=== PATIENT | female | born 1985 | race Caucasian/White ===

== ENCOUNTER 2017-05-17 11:21 | Emergency (ER) | payer MEDICAID ==
[~2017-05-17] VITALS: Ht 162.6 cm; Wt 88.5 kg
[2017-05-17 11:27] VITALS: Ht 162.6 cm; Wt 88.5 kg
[2017-05-17] MEDS ORDERED: ONDANSETRON (ODT) 4 MG TAB ODT STA (12:44)
[2017-05-17] MEDS ORDERED: ACETAMINOPHEN 500 MG TAB PO STA (12:50)
[2017-05-17] MEDS ORDERED: DIPHTH/TET/ACEL PERTUSS (ADULT) 0.5 ML VIAL IM* ONE (13:00)
[2017-05-17] MEDS ORDERED: LIDOCAINE 1% (MDV) 20 ML INJ SC ONE (13:00)
[2017-05-17] MEDS ORDERED: LIDOCAINE 2% (MDV) 20 ML INJ INJ ONE (13:30)
[2017-05-17] MEDS ORDERED: ACET500C5 PO (13:59)
[2017-05-17] MEDS ORDERED: CEPH-443 PO (14:00)
--- NOTE | 2017-05-17 14:08 | ERD ---
ER Documentation Chief Complaint Date/Time DATE: 05/17/17 TIME: 14:02 Chief Complaint BIB SELF C/O LEFT BIG TOE LACERATION. S/P GLASS PLATE FALLING ON FOOT HPI This a 31-year-old female who presents the emergency department today for a left toe laceration. Patient is here with her son who states that earlier today she dropped a glass bowl that she put drinks and similar to a punch bowl on top of her foot. States she is unsure of her last tetanus shot. States she is 8 months . States she feels nauseated. Denies any fevers or chills or previous trauma ROS All systems reviewed and are negative except as per history of present illness. Medications Home Meds Active Scripts Cephalexin* (Keflex*) 500 Mg Capsule, 500 MG PO QID for 7 Days, CAP Prov:BILL ANDERSON PA-C 05/17/17 Acetaminophen* (Tylophen*) 500 Mg Capsule, 1 CAP PO Q6H Y for PAIN AND OR ELEVATED TEMP, #30 CAP Prov:BILL ANDERSON PA-C 05/17/17 Allergies Allergies: Coded Allergies: No Known Allergy (Unverified , 05/04/13) PMhx/Soc Medical and Surgical Hx: pt denies Medical Hx History of Surgery: Yes (c-sec) Anesthesia Reaction: No Hx Neurological Disorder: No Hx Respiratory Disorders: No Hx Cardiac Disorders: No Hx Psychiatric Problems: No Hx Miscellaneous Medical Probl: No Hx Alcohol Use: No (occasionally) Hx Substance Use: No Hx Tobacco Use: No Smoking Status: Never smoker Physical Exam Vitals Vital Signs Date Time Temp Pulse Resp B/P Pulse Ox O2 Delivery O2 Flow Rate FiO2 05/17/17 11:27 98.7 103 20 155/105 99 Physical Exam Const: No acute distress Head: Atraumatic Eyes: Normal Conjunctiva ENT: Normal External Ears, Nose and Mouth. Neck: Full range of motion..~ No meningismus. Resp: Clear to auscultation bilaterally Cardio: Regular rate and rhythm, no murmurs Abd: Soft, non tender, non distended. Normal bowel sounds Skin: No petechiae or rashes MSK: Left foot with no obvious deformity. Mild effusion. Evidence of 2.5 cm laceration. No evidence of foreign body. Tenderness palpation diffusely over great toe. Pulses 2+. Distal neurovascularly intact. Neur: Awake and alert Psych: Normal Mood and Affect Results 24 hrs Current Medications Medications (Trade) Dose Ordered Sig/Aleksandr Route PRN Reason Start Time Stop Time Status Last Admin Dose Admin Ondansetron HCl (Zofran Odt) 4 mg ONCE STAT ODT 05/17/17 12:44 05/17/17 12:45 DC 05/17/17 12:56 Acetaminophen (Tylenol Tab) 500 mg ONCE STAT PO 05/17/17 12:50 05/17/17 12:54 DC 05/17/17 12:56 Diphtheria/ Tetanus/Acell Pertussis (Adacel) 0.5 ml ONCE ONCE IM* 05/17/17 13:00 05/17/17 13:01 DC 05/17/17 12:57 Lidocaine (Xylocaine 1% (Mdv) 20 ml) 20 ml ONCE ONCE SC 05/17/17 13:00 05/17/17 13:01 Cancel Lidocaine (Xylocaine 2% (Mdv) 20 ml) 20 ml ONCE ONCE INJ 05/17/17 13:30 05/17/17 13:31 DC Procedures/MDM This is a 31-year-old female who presents the emergency department today for a left toe laceration that she sustained earlier today after jumping a glass punch bowl on her foot. Patient is 8 months . I did attempt to obtain images of the patient's left toe to rule out fracture or glass foreign body however patient refused. It was explained to the patient multiple times that she is not in the first trimester and she is 8 months and that she could be shielded however patient continued declined. I explained to the patient I could not tell if she had a fracture or if there was glass foreign body. Patient understood. I explained to the patient that the wound and need to be closed with sutures given the depth and location and to help control bleeding. I explained the risks and benefits and patient agreed to proceed. Patient tolerated the procedure well and there were no complications Patient states that she has not yet had a tetanus shot during her and she was unsure of her last tetanus shot. Patient was given an updated Tdap here that is safe and third trimester. Patient was given Zofran for nausea and Tylenol for pain Laceration Repair by me: Anesthesia: 2% lidocaine locally 4 cc Location: Left great toe Tendon/Joint/Nerves: No injury Foreign body: None detected after copious irrigation and exploration Technique: 5 Simple Interrupted Sutures using 4-0 nylon Complexity: No subcutaneous sutures/mucosal repair/ edge excision Post Closure Length: 2.5 cm Patient's bleeding was easily controlled in the department and there is no indication of anemia. No evidence of compartment syndrome, neurologic injury, vascular injury, open joint, tendon laceration, or foreign body. Patient is appropriate for outpatient follow up. 48 hour wound check. Scar minimization instructions given. Patient was given a prescription for Keflex and Tylenol. She was instructed to take the antibiotics and notified that both medications are safe in . Patient understood. She was instructed to return in 48 hours for a wound check and again in 7-10 days for suture removal. Patient understood patient was placed in an ortho shoe. At this time the patient is stable for discharge and outpatient management. Patient should follow up with their PCP in the next 1-2 days. They may return to the emergency department sooner for any persistent or worsening of symptoms. Patient understood and agreed with the plan. Dr. Vargas has seen and evaluated the patient and he is in agreement with the plan Departure Diagnosis: Primary Impression: Laceration Condition: Fair Patient Instructions: Laceration, Foot Referrals: your PCP Additional Instructions: Llame al doctor MAANA y nam hernando FRANCISCA PARA DENTRO DE 1-2 DIETRICH.Dgale a la secretaria que nosotros le instruimos hacer esta francisca.Avise o llame si rao condicin se empeora antes de la francisca. Regresa aqui si peor o no mejor. Wound check in 48 hours Suture removal in 7-10 days Take antibiotics as prescribed Keep wound clean and dry Wear ortho shoe Take Tylenol for pain BILL ANDERSON PA-C May 17, 2017 14:08
== END 2017-05-17 14:18 | disposition home or self-care (01) ==
LOC: FTE 11:21
DX: S91.122A Laceration with foreign body of left great toe without damage to nail, initial encounter (principal); W25.XXXA Contact with sharp glass, initial encounter; Y92.9 Unspecified place or not applicable; Z23 Encounter for immunization
CPT/HCPCS: 12001; 90471; 90715; Z7502; Z7610

== ENCOUNTER 2017-06-02 11:22 | Outpatient (CLI) | payer MEDICAID ==
[~2017-06-02] VITALS: Ht 162.6 cm; Wt 88.7 kg
[~2017-06-02 11:22] MED LIST: ACET500C5 PO; CEPH-443 PO
[2017-06-02 11:35] VITALS: Ht 162.6 cm; Wt 88.7 kg
[2017-06-02 11:36] VITALS: BP 115/72; PULSE 101; RESP 18
[2017-06-02] MEDS ORDERED: CALC600T11 PO (11:42)
[2017-06-02] MEDS ORDERED: PRENAT PO (11:42)
[2017-06-02] MEDS ORDERED: FERR325C PO (11:42)
--- NOTE | 2017-06-02 12:01 | RADRPT ---
PROCEDURE: OB ultrasound for biophysical profile CLINICAL INDICATION: Decreased movement TECHNIQUE: Multiple sonographic images of the pelvis were obtained. Transabdominal view of the gr avid uterus are available for review. The images were reviewed on a PACS workstation. COMPARISON: OB ultrasound 06/01/2017 FINDINGS: breathing movement = 2/2 tone = 2/2 motion = 2/2 SHIRLEY = 2/2 SHIRLEY = 11.9 cm Single live intrauterine with cardiac activity. heart rate equals 157 beats p er minute. Presentation is cephalic. The placenta is anterior. IMPRESSION: 1. Single viable intrauterine gestation. 2. Biophysical profile = 8/8. 3. SHIRLEY = 11.9 cm. RPTAT: KK .Levi Garcia MD, MD Date Time Electronically viewed and signed by .Levi Garcia MD, MD on 06/02/2017 12:01 .B/
--- NOTE | 2017-06-02 13:07 | RADRPT ---
PROCEDURE: US Abdomen Limited . CLINICAL INDICATION: with abdominal pain TECHNIQUE: Multiple real-time images were acquired of the patient's right upper quadrant abdomen u tilizing a high resolution transducer. COMPARISON: None FINDINGS: The liver measures 15.0 cm and demonstrates a normal echogenicity. The gallbladder is filled with a moderate amount of bile. No shadowing echogenic stones or masses are seen in the gallbladder. The gallbladder wall is not thickened at 1.0 mm. No pericholecystic fluid is noted. The common bile duct measures 5.1 mm in diameter. The pancreas is not well visualized. Antegrade flow is seen in the portal vein. Right kidney measures 10.6 cm. Right kidney demonstrates a normal echogenicity. No hydronephrosis, masses or stones are noted. IMPRESSION: Pancreas not well visualized. If characterization of this structure is needed repeat exam is recomme nded. Otherwise, unremarkable exam. RPTAT: AA .Viet Rose MD, Date Time Electronically viewed and signed by .Viet Rose MD, on 06/02/2017 13:07 .P/
[2017-06-02 13:54] LABS: ADD SCAN DIFF NO
[2017-06-02 13:57] LABS: BASOPHILS % 0.4 % (0.0-2.0); EOSINOPHILS # 0.2 10^3/ul (0.0-0.5); EOSINOPHILS % 2.5 % (0.0-7.0); HEMATOCRIT 35.6 % (37.0-47.0); HEMOGLOBIN 12.3 g/dl (12.0-16.0); LYMPHOCYTES # 1.8 10^3/ul (0.8-2.9); MEAN CORPUSCULAR HEMOGLOBIN 30.7 pg (29.0-33.0); MEAN CORPUSCULAR HGB CONC 34.6 g/dl (32.0-37.0); MEAN CORPUSCULAR VOLUME 88.8 fl (82.0-101.0); MEAN PLATELET VOLUME 10.8 fl (7.4-10.4); MONOCYTE # 0.6 10^3/ul (0.3-0.9); MONOCYTES % 8.3 % (0.0-11.0); NEUTROPHIL # 4.9 10^3/ul (1.6-7.5); NEUTROPHILS % 63.5 % (39.0-77.0); NUCLEATED RED BLOOD CELLS% 0.4 /100WBC (0.0-0.0); PLATELET COUNT 225 10^3/UL (140-415); RED BLOOD COUNT 4.01 10^6/ul (4.20-5.40); RED CELL DISTRIBUTION WIDTH 15.1 % (11.5-14.5); WHITE BLOOD COUNT 7.7 10^3/ul (4.8-10.8)
[2017-06-02 14:06] LABS: ADD UMIC YES; UR ASCORBIC ACID 20 mg/dL (NEGATIVE); UR BACTERIA FEW /HPF (NONE SEEN); UR BILIRUBIN (Dip) NEGATIVE (NEGATIVE); UR BLOOD (Dip) NEGATIVE (NEGATIVE); UR CLARITY SLIGHTLY CLOUDY (CLEAR); UR COLOR YELLOW (YELLOW); UR GLUCOSE (Dip) NEGATIVE (NEGATIVE); UR KETONES (Dip) NEGATIVE (NEGATIVE); UR LEUKOCYTE ESTERASE (Dip) TRACE Leu/ul (NEGATIVE); UR MUCUS FEW /HPF (NONE SEEN); UR NITRITE (Dip) NEGATIVE (NEGATIVE); UR RBC 6 /HPF (0-5); UR SPECIFIC GRAVITY (Dip) 1.024 (1.003-1.030); UR SQUAMOUS EPITHELIAL CELL MODERATE /HPF (FEW); UR TOTAL PROTEIN (Dip) 2+ mg/dl (NEGATIVE); UR UROBILINOGEN (Dip) NEGATIVE (NEGATIVE)
--- NOTE | 2017-06-02 14:42 | TRIAGE ---
OB Triage Datetime Report Generated by CPN: 06/02/2017 14:42 Datetime: 06/02/2017 12:23 Heart Rate Comments: NST COMPLETE. Pt taken off monitors and now awaiting US for R upper quadrant organs. Datetime: 06/02/2017 11:46 Time of Arrival: 06/02/2017 11:16 EGA: 35.5 Arrived By: Ambulatory Arrived From: Office Chief Complaint: Decreased movement Movement: Decreased Contractions: Denies/Absent Rupture of Membranes: Denies Vaginal Bleeding: Normal Show Vaginal Discharge: Denies Recent Sexual Intercouse: Denies Abdominal Trauma: Not Applicable Patient Complaints: None Time Provider Notified: 06/02/2017 12:17 Provider Notified: Eshaghian Initial Plan: BPP/SHIRLEY, NST Datetime: 06/02/2017 11:31 Assessment Type: Triage Maternal Assessment Level of Consciousness: Fully Conscious DTR's/Clonus: DTRs 2+; No Clonus Headache: Denies Blurred Vision: No Respiratory Effort: Unlabored; Regular Rhythm; Equal Expansion Breath Sounds, Left: Clear and Equal Breath Sounds, Right: Clear and Equal Nausea/Vomiting: Denies RUQ Epigastric Pain: Denies Lower Extremities Edema: Bilateral Lower Extremities Degree: 1+ Upper Extremities Edema: None Degree: None Facial Edema: None Fall Risk Assessment History of Falling: (0) No Secondary Diagnosis: (0) No Ambulatory Aid: (0) Bedrest/Nurse Assist IV Therapy: (0) No Gait: (0) Normal/Bedrest/Immobile Mental Status: (0) Oriented to Own Ability Fall Score: 0 Fall Risk Score Definition: No Risk: No action required Pain Assessment Pain Scale: 4 Pain Presence: Intermittent Pain Type: Ache Pain Location: Abdomen Pain Goal: 0 Pain Relief Measures: Comfort Measures Datetime: 06/02/2017 11:24 Stage of : OB Triage
--- NOTE | 2017-06-02 14:59 | CONS ---
Date/Time of Note Date/Time of Note DATE: 06/02/17 TIME: 14:54 Consultation Date/Type/Reason Admit Date/Time June 02, 2007 OB triage consult Reason for Consultation This patient is a 31 years old 2 para 1 who had her first delivery by section. Her estimated date of confinement is July 02, 2017 which makes her 25 weeks and 5 days now. She came to OB triage complaining of low movement as well as slight upper abdominal pain a few hours ago She is currently attending her clinic regularly. she is taking her iron calcium and multivitamins on examination she is a well-developed well-nourished lady near term. Her general vital signs appear to be normal with blood pressure 115/72 ,pulse rate 101,, respiration 18, and temperature 98.3 heart tone was normal, tracing category 1 with good variability ,no decelerations On examination ;abdomen was soft, very rare contractions, no CVA tenderness Laboratory Tests Test 06/02/17 13:30 White Blood Count 7.710^3/ul Red Blood Count 4.0110^6/ul Hemoglobin 12.3g/dl Hematocrit 35.6% Mean Corpuscular Volume 88.8fl Mean Corpuscular Hemoglobin 30.7pg Mean Corpuscular Hemoglobin Concent 34.6g/dl Red Cell Distribution Width 15.1% Platelet Count 52688^3/UL Mean Platelet Volume 10.8fl Neutrophils % 63.5% Lymphocytes % 24.0% Monocytes % 8.3% Eosinophils % 2.5% Basophils % 0.4% Nucleated Red Blood Cells % 0.4/100WBC Neutrophils # 4.910^3/ul Lymphocytes # 1.810^3/ul Monocytes # 0.610^3/ul Eosinophils # 0.210^3/ul Basophils # 0.010^3/ul Nucleated Red Blood Cells # 0.010^3/ul Urine Color YELLOW Urine Clarity SLIGHTLY CLOUDY Urine pH 7.0 Urine Specific [place] 1.024 Urine Ketones NEGATIVEmg/dL Urine Nitrite NEGATIVEmg/dL Urine Bilirubin NEGATIVEmg/dL Urine Urobilinogen NEGATIVEmg/dL Urine Leukocyte Esterase TRACELeu/ul Urine Microscopic RBC 6/HPF Urine Microscopic WBC 4/HPF Urine Squamous Epithelial Cells MODERATE/HPF Urine Bacteria FEW/HPF Urine Mucus FEW/HPF Urine Yeast (Budding) /HPF Urine Hemoglobin NEGATIVEmg/dL Urine Glucose NEGATIVEmg/dL Urine Total Protein 2+mg/dl Constitutional: No chills, No diaphoresis, No disoriented, No febrile, No improved, No no complaints, No other, No poor po, No requiring IVF, No requiring O2 Eyes: No discharge, No no complaints, No other, No pain, No redness, No visual change ENT: No bleeding, No congestion, No discharge, No dysphagia, No no complaints, No other, No pain, No sore throat Respiratory: No cough, No no complaints, No other, No pain, No pleuritic pain, No shortness of breath, No sputum, No wheezing Cardiovascular: No chest pain, No edema, No lightheadedness, No no complaints, No orthopenea, No other, No palpitations, No paroxysmal nocturnal dyspnea Gastrointestinal: other, No blood, No constipation, No decreased appetite, No diarrhea, No flatus, No nausea, No no complaints, No pain, No passing stool, No vomiting Genitourinary: other (Pelvic exam was not performed due to the fact that she did not seem to have any active contractions), No bleeding, No discharge, No dysuria, No flank pain, No hematuria, No no complaints Musculoskeletal: No back pain, No bone/joint pain, No neck pain, No no complaints, No other, No restricted range of motion, No swelling Skin: No bruising, No erythema, No laceration, No no complaints, No other, No pruritis, No rash, No skin lesions Neurologic: No confusion, No dizziness, No focal-weakness, No headache, No no complaints, No other, No seizure, No syncope Endocrine: No dry skin, No no complaints, No other, No polydypsia, No polyuria , No temp intolerance Lymphatic: No adenopathy, No lymphadema, No no complaints, No other, No tender nodes Additional Comments The studies that we have done in the clinic ;,the urine total protein was 1 plus , WBC of 4 and RBCs . She was diagnosed urinary tract infection in the past week and was placed on antibiotic. on ultrasound studies report is single intrauterine with heart rate of 157. in vertex presentation. placenta anterior her SHIRLEY was 11.9 cm, with biophysical profile of 06/03 Renal ultrasound were also normal With these negative finding reassurance was given and patient was discharged home to return to the clinic in case of labor pain. vaginal bleeding or any other major discomfort End of dictation thank Social History Smoking Status: Never smoker Exam/Review of Systems Vital Signs Vitals Vital Signs Date Time Temp Pulse Resp B/P Pulse Ox O2 Delivery O2 Flow Rate FiO2 06/02/17 11:36 98.3 101 18 115/72 Room Air Results Result Diagram: 06/02/17 1330 Results 24 hrs Laboratory Tests Test 06/02/17 13:30 White Blood Count 7.7 Red Blood Count 4.01 L Hemoglobin 12.3 Hematocrit 35.6 L Mean Corpuscular Volume 88.8 Mean Corpuscular Hemoglobin 30.7 Mean Corpuscular Hemoglobin Concent 34.6 Red Cell Distribution Width 15.1 H Platelet Count 225 Mean Platelet Volume 10.8 H Neutrophils % 63.5 Lymphocytes % 24.0 Monocytes % 8.3 Eosinophils % 2.5 Basophils % 0.4 Nucleated Red Blood Cells % 0.4 H Neutrophils # 4.9 Lymphocytes # 1.8 Monocytes # 0.6 Eosinophils # 0.2 Basophils # 0.0 Nucleated Red Blood Cells # 0.0 Urine Color YELLOW Urine Clarity SLIGHTLY CLOUDY A Urine pH 7.0 Urine Specific [place] 1.024 Urine Ketones NEGATIVE Urine Nitrite NEGATIVE Urine Bilirubin NEGATIVE Urine Urobilinogen NEGATIVE Urine Leukocyte Esterase TRACE A Urine Microscopic RBC 6 H Urine Microscopic WBC 4 Urine Squamous Epithelial Cells MODERATE Urine Bacteria FEW A Urine Mucus FEW A Urine Yeast (Budding) Urine Hemoglobin NEGATIVE Urine Glucose NEGATIVE Urine Total Protein 2+ H DAVID LIPSCOMB MD Jun 02, 2017 14:59
== END 2017-06-02 14:45 | disposition home or self-care (01) ==
LOC: OBT 11:22 → L-D 11:24 → OBT 14:45
PROVIDERS: ATTEND Obstetrics & Gynecology
DX: O62.9 Abnormality of forces of labor, unspecified (principal); Z3A.25 25 weeks gestation of pregnancy
CPT/HCPCS: 36415; 76705; 76818; 81001; 85025; Z7500; G0463

== ENCOUNTER 2017-06-16 12:41 | Outpatient (CLI) | payer MEDICAID ==
[~2017-06-16] VITALS: Ht 167.6 cm; Wt 92.8 kg
[~2017-06-16 12:41] MED LIST changes: +CALC600T11 PO; +FERR325C PO; +PRENAT PO
[2017-06-16 13:14] VITALS: Ht 167.6 cm; Wt 92.8 kg
[2017-06-16 13:16] VITALS: BP 118/74; PULSE 88; RESP 20
[2017-06-16 14:28] LABS: ADD SCAN DIFF NO
[2017-06-16 14:32] LABS: BASOPHILS % 0.4 % (0.0-2.0); EOSINOPHILS % 0.5 % (0.0-7.0); HEMATOCRIT 36.6 % (37.0-47.0); HEMOGLOBIN 12.2 g/dl (12.0-16.0); LYMPHOCYTES % 24.1 % (15.0-51.0); MEAN CORPUSCULAR HEMOGLOBIN 29.6 pg (29.0-33.0); MEAN CORPUSCULAR HGB CONC 33.3 g/dl (32.0-37.0); MEAN CORPUSCULAR VOLUME 88.8 fl (82.0-101.0); MEAN PLATELET VOLUME 10.9 fl (7.4-10.4); MONOCYTE # 0.6 10^3/ul (0.3-0.9); MONOCYTES % 7.3 % (0.0-11.0); NEUTROPHIL # 5.4 10^3/ul (1.6-7.5); NEUTROPHILS % 66.5 % (39.0-77.0); PLATELET COUNT 203 10^3/UL (140-415); RED BLOOD COUNT 4.12 10^6/ul (4.20-5.40); RED CELL DISTRIBUTION WIDTH 15.5 % (11.5-14.5); WHITE BLOOD COUNT 8.2 10^3/ul (4.8-10.8)
[2017-06-16 14:42] LABS: ADD UMIC NO; UR ASCORBIC ACID NEGATIVE (NEGATIVE); UR BILIRUBIN (Dip) NEGATIVE (NEGATIVE); UR BLOOD (Dip) NEGATIVE (NEGATIVE); UR CLARITY CLEAR (CLEAR); UR COLOR YELLOW (YELLOW); UR GLUCOSE (Dip) NEGATIVE (NEGATIVE); UR KETONES (Dip) NEGATIVE (NEGATIVE); UR LEUKOCYTE ESTERASE (Dip) NEGATIVE Leu/ul (NEGATIVE); UR NITRITE (Dip) NEGATIVE (NEGATIVE); UR TOTAL PROTEIN (Dip) NEGATIVE (NEGATIVE); UR UROBILINOGEN (Dip) NEGATIVE (NEGATIVE)
[2017-06-16 14:54] LABS: ALBUMIN 3.3 g/dl (3.3-4.9); CALCIUM 9.4 mg/dl (8.4-10.2); CREATININE 0.67 mg/dl (0.44-1.00); POTASSIUM 4.6 mmol/L (3.5-5.1); TOTAL PROTEIN 6.7 g/dl (6.1-8.1)
[2017-06-16 14:58] LABS: INR 0.83; PROTIME 11.4 Sec (12.2-14.2); PT RATIO 0.9
[2017-06-16 14:59] LABS: PARTIAL THROMBOPLASTIN TIME 24.3 Sec (25.0-35.0)
--- NOTE | 2017-06-16 15:34 | RADRPT ---
PROCEDURE: US OB. CLINICAL INDICATION: Hypertension. TECHNIQUE: Multiple sonographic images of the uterus were obtained. The images were revi ewed on a PACS workstation. COMPARISON: No prior studies are available for comparison. FINDINGS: There is a single live intrauterine gestation. heart rate is 131 beats per minute. Measurements were made in order to determine age. The results are as follows: BPD = 8.74 cm. HC = 32.62 cm. AC = 34.0 cm. FL = 7.24 cm. Estimated weight is 3170 +/- 476 grams. LMP growth percentile is 49%. Menstrual age by ultrasound dates is 36 weeks 6 days. The estimated date of delivery is 07/08/2017. Position is cephalic and placenta is anterior grade II. There is no evidence for an abruption or [place] previa. IMPRESSION: 1. Single live intrauterine gestation of 36 weeks 6 days menstrual age by ultrasound dates. 2. The estimated date of delivery is 07/08/2017. RPTAT: QQ .Jose Alberto Ackerman MD, Date Time Electronically viewed and signed by .Jose Alberto Ackerman MD, on 06/16/2017 15:33 .R/
--- NOTE | 2017-06-16 15:36 | RADRPT ---
PROCEDURE: US biophysical profile. CLINICAL INDICATION: Decreased motion. TECHNIQUE: Multiple sonographic images of the uterus were obtained. The images were revi ewed on a PACS workstation. COMPARISON: No prior studies are available for comparison. FINDINGS: There is a single live intrauterine gestation. heart rate is 125 beats per minute. The position is cephalic. The placenta is anterior grade II with no abruption or previa. The SHIRLEY is 16.6 cm. (Normal = 5-20 cm.) Breathing Movement: 2 Gross Body Movement: 2 Tone: 2 Qualitative Amniotic Fluid Volume: 2 TOTAL: 8 IMPRESSION: 1. The biophysical score is 8/8. RPTAT: QQ .Jose Alberto Ackerman MD, MD Date Time Electronically viewed and signed by .Jose Alberto Ackerman MD, on 06/16/2017 15:35 .R/
--- NOTE | 2017-06-16 17:09 | TRIAGE ---
OB Triage Datetime Report Generated by CPN: 06/16/2017 17:09 Datetime: 06/16/2017 16:37 Vaginal Exam Dilatation (cms): 0.0 Effacement (%): 0 Exam By: DR FOROOHAR Datetime: 06/16/2017 16:20 Stage of : OB Triage Datetime: 06/16/2017 15:18 Stage of : OB Triage Labor Evaluation Frequency: 11 Monitor Mode: External Duration (sec)2399: 60 Quality: Moderate Resting Tone [place]: Relaxed Heart Rate FHR Baseline Rate: 125 Monitor Mode: External US Variability: Moderate 6-25 bpm Accelerations: 15X15 Decelerations: None Category: Category I Pain Assessment Pain Scale: 5 Pain Presence: Intermittent Pain Type: Cramping; Contraction Pain Location: Abdomen; Back Pain Goal: 3 Pain Relief Measures: Comfort Measures Datetime: 06/16/2017 14:48 Stage of : OB Triage Labor Evaluation Frequency: 7-8 Monitor Mode: External Duration (sec)2399: 60 Quality: Moderate Resting Tone [place]: Relaxed Heart Rate FHR Baseline Rate: 125 Monitor Mode: External US Variability: Moderate 6-25 bpm Accelerations: 15X15 Decelerations: None Category: Category I Pain Assessment Pain Scale: 5 Pain Presence: Intermittent Pain Type: Cramping; Contraction Pain Location: Abdomen; Back Pain Goal: 3 Pain Relief Measures: Comfort Measures Datetime: 06/16/2017 13:48 Stage of : OB Triage Labor Evaluation Frequency: 7-8 Monitor Mode: External Duration (sec)2399: 60 Quality: Moderate Resting Tone [place]: Relaxed Heart Rate FHR Baseline Rate: 140 Monitor Mode: External US Variability: Moderate 6-25 bpm Accelerations: 15X15 Decelerations: None Category: Category I Pain Assessment Pain Scale: 5 Pain Presence: Intermittent Pain Type: Cramping; Contraction Pain Location: Abdomen; Back Pain Goal: 3 Pain Relief Measures: Comfort Measures Datetime: 06/16/2017 13:09 Stage of : OB Triage Maternal Assessment Temperature Route: Oral Monitor Mode: External Datetime: 06/16/2017 13:05 Time of Arrival: 06/16/2017 12:35 EGA: 37.5 Arrived By: Wheelchair Arrived From: Office Chief Complaint: HEADACHE/ SEND FOR ELEV BP BY DR GOODSON IN OFFICE Movement: Present Contractions: Regular Contractions: - Rupture of Membranes: Denies Vaginal Bleeding: None Vaginal Discharge: Denies Recent Sexual Intercouse: Denies Abdominal Trauma: Not Applicable Patient Complaints: Cramping; Back Pain; Headache Time Provider Notified: 06/16/2017 14:12 Provider Notified: migue Initial Plan: NST CHECK BP'S [facility] LABS ,bpp and efw Datetime: 06/02/2017 12:22 Labor Evaluation Frequency: Irregular Monitor Mode: External Duration (sec)2399: 40-70 Quality: Mild Pattern: Normal: <= 5 Contractions in 10 Minutes Resting Tone [place]: Relaxed Contraction Comments: One prominent contraction noted lasting 70 seconds. Some irritability noted. Heart Rate FHR Baseline Rate: 140 Monitor Mode: External US FHR Baseline Changes: No Baseline Change Variability: Moderate 6-25 bpm Accelerations: 15X15 Decelerations: None Category: Category I Pain Assessment Pain Scale: 5 Pain Presence: Intermittent Pain Type: Contraction; Pressure Pain Location: Abdomen; Back Pain Goal: 0 Pain Relief Measures: Comfort Measures Datetime: 06/02/2017 11:46 EGA: 35.5 Datetime: 06/02/2017 11:31 Fall Risk Assessment Fall Score: 0 Fall Risk Score Definition: No Risk: No action required
--- NOTE | 2017-06-16 18:11 | CONS ---
Date/Time of Note Date/Time of Note DATE: 06/16/17 TIME: 17:12 Consultation Date/Type/Reason Admit Date/Time June 16, 2017 OB triage consult Reason for Consultation This patient is 30 years old 2 para 1 with estimated date of confinement of July 08, 2017 which makes her about 37 weeks and 5 days clinically She was sent to the triage clinic due to elevated the blood pressure of 134/89 and few contractions that she has not as well as headache On examination she is a well-developed well-nourished patient near term in no acute distress. On examination her general vital signs are within normal limits with a blood pressure of 118/74, pulse rate of 88, respiration of 20, temperature 98.6 On repeat exam her blood pressure was 134/182 in reviewing the tracing heart tone was normal with good variability occasional acceleration no evidence of deceleration on the tracing. On pelvic examination her cervix was closed long -3 station with intact membrane. We performed some laboratory studies; her PIH panel including the electrolytes and liver panel all within normal limits including SGOT SGPT. Her CBC also was normal with WBC of 8.2 hemoglobin 12.2 hematocrit of 36.6 platelet was 203, 000.. Her urinalysis was also normal no proteinuria no hematuria . Laboratory Tests Test 06/16/17 13:40 06/16/17 13:48 Urine Color YELLOW Urine Clarity CLEAR Urine pH 7.0 Urine Specific [place] 1.010 Urine Ketones NEGATIVEmg/dL Urine Nitrite NEGATIVEmg/dL Urine Bilirubin NEGATIVEmg/dL Urine Urobilinogen NEGATIVEmg/dL Urine Leukocyte Esterase NEGATIVELeu/ul Urine Hemoglobin NEGATIVEmg/dL Urine Glucose NEGATIVEmg/dL Urine Total Protein NEGATIVEmg/dl White Blood Count 8.210^3/ul Red Blood Count 4.1210^6/ul Hemoglobin 12.2g/dl Hematocrit 36.6% Mean Corpuscular Volume 88.8fl Mean Corpuscular Hemoglobin 29.6pg Mean Corpuscular Hemoglobin Concent 33.3g/dl Red Cell Distribution Width 15.5% Platelet Count 46604^3/UL Mean Platelet Volume 10.9fl Neutrophils % 66.5% Lymphocytes % 24.1% Monocytes % 7.3% Eosinophils % 0.5% Basophils % 0.4% Neutrophils # 5.410^3/ul Lymphocytes # 2.010^3/ul Monocytes # 0.610^3/ul Eosinophils # 0.010^3/ul Basophils # 0.010^3/ul Nucleated Red Blood Cells # 0.010^3/ul Prothrombin Time 11.4Sec Prothrombin Time Ratio 0.9 INR International Normalized Ratio 0.83 Activated Partial Thromboplast Time 24.3Sec Fibrinogen 497.0mg/dl Sodium Level 139mmol/L Potassium Level 4.6mmol/L Chloride Level 102mmol/L Carbon Dioxide Level 22mmol/L Anion Gap 20 Blood Urea Nitrogen 8mg/dl Creatinine 0.67mg/dl Glucose Level 74mg/dl Uric Acid 5.3mg/dl Calcium Level 9.4mg/dl Phosphorus Level 4.0mg/dl Total Bilirubin 0.0mg/dl Direct Bilirubin 0.00mg/dl Indirect Bilirubin 0.0mg/dl Aspartate Amino Transf (AST/SGOT) 29IU/L Alanine Aminotransferase (ALT/SGPT) 43IU/L Alkaline Phosphatase 201IU/L Total Protein 6.7g/dl Albumin 3.3g/dl Constitutional: No chills, No diaphoresis, No disoriented, No febrile, No improved, No no complaints, No other, No poor po, No requiring IVF, No requiring O2 Eyes: No discharge, No no complaints, No other, No pain, No redness, No visual change ENT: No bleeding, No congestion, No discharge, No dysphagia, No no complaints, No other, No pain, No sore throat Respiratory: No cough, No no complaints, No other, No pain, No pleuritic pain, No shortness of breath, No sputum, No wheezing Cardiovascular: No chest pain, No edema, No lightheadedness, No no complaints, No orthopenea, No other, No palpitations, No paroxysmal nocturnal dyspnea Gastrointestinal: No blood, No constipation, No decreased appetite, No diarrhea , No flatus, No nausea, No no complaints, No other, No pain, No passing stool, No vomiting Genitourinary: other (As I mentioned on pelvic exam the cervix was closed and long with intact membranes), No bleeding, No discharge, No dysuria, No flank pain, No hematuria, No no complaints Musculoskeletal: other (No CVA tenderness), No back pain, No bone/joint pain, No neck pain, No no complaints, No restricted range of motion, No swelling Skin: No bruising, No erythema, No laceration, No no complaints, No other, No pruritis, No rash, No skin lesions Neurologic: other (Knee-jerk reflex were normal), No confusion, No dizziness, No focal-weakness, No headache, No no complaints , No seizure, No syncope Endocrine: No dry skin, No no complaints, No other, No polydypsia, No polyuria , No temp intolerance Additional Comments On ultrasound study the report was a single live intrauterine gestation with heart rate of 125 bpm in vertex presentation placenta was anterior grade 2 her amniotic fluid index was 16.6 cm with biophysical profile of 07/05. Estimated weight was 3170 g 476 g which complies with the 49% percentile growth. With this findings reassurance given to the patient and she will be followed in the clinic and will undergo a section next week End of dictation Social History Smoking Status: Never smoker Exam/Review of Systems Vital Signs Vitals Vital Signs Date Time Temp Pulse Resp B/P Pulse Ox O2 Delivery O2 Flow Rate FiO2 06/16/17 13:16 98.6 88 20 118/74 98 Room Air Results Result Diagram: 06/16/17 1348 06/16/17 1348 Results 24 hrs Laboratory Tests Test 06/16/17 13:40 06/16/17 13:48 Urine Color YELLOW Urine Clarity CLEAR Urine pH 7.0 Urine Specific [place] 1.010 Urine Ketones NEGATIVE Urine Nitrite NEGATIVE Urine Bilirubin NEGATIVE Urine Urobilinogen NEGATIVE Urine Leukocyte Esterase NEGATIVE Urine Hemoglobin NEGATIVE Urine Glucose NEGATIVE Urine Total Protein NEGATIVE White Blood Count 8.2 Red Blood Count 4.12 L Hemoglobin 12.2 Hematocrit 36.6 L Mean Corpuscular Volume 88.8 Mean Corpuscular Hemoglobin 29.6 Mean Corpuscular Hemoglobin Concent 33.3 Red Cell Distribution Width 15.5 H Platelet Count 203 Mean Platelet Volume 10.9 H Neutrophils % 66.5 Lymphocytes % 24.1 Monocytes % 7.3 Eosinophils % 0.5 Basophils % 0.4 Neutrophils # 5.4 Lymphocytes # 2.0 Monocytes # 0.6 Eosinophils # 0.0 Basophils # 0.0 Nucleated Red Blood Cells # 0.0 Prothrombin Time 11.4 L Prothrombin Time Ratio 0.9 INR International Normalized Ratio 0.83 Activated Partial Thromboplast Time 24.3 L Fibrinogen 497.0 H Sodium Level 139 Potassium Level 4.6 Chloride Level 102 Carbon Dioxide Level 22 Anion Gap 20 H Blood Urea Nitrogen 8 Creatinine 0.67 Glucose Level 74 Uric Acid 5.3 Calcium Level 9.4 Phosphorus Level 4.0 Total Bilirubin 0.0 L Direct Bilirubin 0.00 Indirect Bilirubin 0.0 Aspartate Amino Transf (AST/SGOT) 29 Alanine Aminotransferase (ALT/SGPT) 43 Alkaline Phosphatase 201 H Total Protein 6.7 Albumin 3.3 DAVID LIPSCOMB MD Jun 16, 2017 18:11
== END 2017-06-16 16:50 | disposition home or self-care (01) ==
LOC: OBT 12:41 → L-D 12:42 → OBT 16:50
PROVIDERS: ATTEND Obstetrics & Gynecology
DX: O62.9 Abnormality of forces of labor, unspecified (principal); O26.893 Other specified pregnancy related conditions, third trimester; Z3A.37 37 weeks gestation of pregnancy; R03.0 Elevated blood-pressure reading, without diagnosis of hypertension
CPT/HCPCS: 36415; 76815; 76818; 80069; 80076; 81003; 84560; 85025; 85384; 85610; 85730; Z7500; G0463

== ENCOUNTER 2017-06-23 14:15 | Outpatient (CLI) | payer MEDICAID ==
[~2017-06-23] VITALS: Ht 160 cm; Wt 93.2 kg
[~2017-06-23 14:15] MED LIST changes: -CEPH-443 PO
[2017-06-23 14:30] VITALS: Ht 160 cm; Wt 93.2 kg
[2017-06-23 15:41] LABS: BASOPHILS % 0.4 % (0.0-2.0); EOSINOPHILS % 0.6 % (0.0-7.0); HEMATOCRIT 37.4 % (37.0-47.0); HEMOGLOBIN 12.8 g/dl (12.0-16.0); LYMPHOCYTES # 2.3 10^3/ul (0.8-2.9); LYMPHOCYTES % 32.3 % (15.0-51.0); MEAN CORPUSCULAR HEMOGLOBIN 30.2 pg (29.0-33.0); MEAN CORPUSCULAR HGB CONC 34.2 g/dl (32.0-37.0); MEAN CORPUSCULAR VOLUME 88.2 fl (82.0-101.0); MEAN PLATELET VOLUME 11.2 fl (7.4-10.4); MONOCYTE # 0.6 10^3/ul (0.3-0.9); MONOCYTES % 8.3 % (0.0-11.0); NEUTROPHILS % 57.3 % (39.0-77.0); NUCLEATED RED BLOOD CELLS% 0.3 /100WBC (0.0-0.0); PLATELET COUNT 194 10^3/UL (140-415); RED BLOOD COUNT 4.24 10^6/ul (4.20-5.40); RED CELL DISTRIBUTION WIDTH 15.9 % (11.5-14.5)
[2017-06-23 15:47] LABS: ADD UMIC YES; UR ASCORBIC ACID NEGATIVE (NEGATIVE); UR BACTERIA FEW /HPF (NONE SEEN); UR BILIRUBIN (Dip) NEGATIVE (NEGATIVE); UR BLOOD (Dip) NEGATIVE (NEGATIVE); UR CLARITY CLEAR (CLEAR); UR COLOR YELLOW (YELLOW); UR GLUCOSE (Dip) NEGATIVE (NEGATIVE); UR KETONES (Dip) NEGATIVE (NEGATIVE); UR LEUKOCYTE ESTERASE (Dip) TRACE Leu/ul (NEGATIVE); UR NITRITE (Dip) NEGATIVE (NEGATIVE); UR RBC 0 /HPF (0-5); UR SPECIFIC GRAVITY (Dip) 1.011 (1.003-1.030); UR SQUAMOUS EPITHELIAL CELL FEW /HPF (FEW); UR TOTAL PROTEIN (Dip) 1+ mg/dl (NEGATIVE); UR UROBILINOGEN (Dip) NEGATIVE (NEGATIVE)
[2017-06-23 15:49] LABS: ALBUMIN 3.5 g/dl (3.3-4.9); ALBUMIN/GLOBULIN RATIO 1.06; BILIRUBIN,INDIRECT 0.1 mg/dl (0-1.1); BILIRUBIN,TOTAL 0.1 mg/dl (0.2-1.3); CREATININE 0.65 mg/dl (0.44-1.00); POTASSIUM 4.5 mmol/L (3.5-5.1); TOTAL PROTEIN 6.8 g/dl (6.1-8.1); URIC ACID 5.7 mg/dl (3.1-7.9)
--- NOTE | 2017-06-23 16:42 | RADRPT ---
PROCEDURE: US biophysical profile. CLINICAL INDICATION: induced hypertension. TECHNIQUE: Multiple sonographic images of the uterus were obtained. The images were revi ewed on a PACS workstation. COMPARISON: No prior studies are available for comparison. FINDINGS: There is a single live intrauterine gestation. heart rate is 139 beats per minute. The position is cephalic. The placenta is anterior grade II with no abruption or previa. The SHIRLEY is 11.1 cm. (Normal = 5-20 cm.) Breathing Movement: 2 Gross Body Movement: 2 Tone: 2 Qualitative Amniotic Fluid Volume: 2 TOTAL: 8 IMPRESSION: 1. The biophysical score is 8/8. RPTAT: QQ .Jose Alberto Ackerman MD, MD Date Time Electronically viewed and signed by .Jose Alberto Ackerman MD, on 06/23/2017 16:38 .R/
--- NOTE | 2017-06-23 17:41 | TRIAGE ---
OB Triage Datetime Report Generated by CPN: 06/23/2017 17:41 Datetime: 06/23/2017 15:21 Labor Evaluation Frequency: NONE Pattern: Normal: <= 5 Contractions in 10 Minutes Resting Tone Reeves: Relaxed Heart Rate FHR Baseline Rate: 135 Monitor Mode: External US FHR Baseline Changes: No Baseline Change Variability: Moderate 6-25 bpm Accelerations: 15X15 Decelerations: None Category: Category I Datetime: 06/23/2017 14:29 Assessment Type: Ongoing Assessment Maternal Assessment Level of Consciousness: Fully Conscious DTR's/Clonus: DTRs 2+; No Clonus Headache: Denies Blurred Vision: No Respiratory Effort: Unlabored; Regular Rhythm; Equal Expansion Breath Sounds, Left: Clear and Equal Breath Sounds, Right: Clear and Equal Nausea/Vomiting: Denies RUQ Epigastric Pain: Denies Lower Extremities Edema: Bilateral Lower Extremities Degree: 2+ Upper Extremities Edema: None Facial Edema: None Fall Risk Assessment History of Falling: (0) No Secondary Diagnosis: (0) No Ambulatory Aid: (0) Bedrest/Nurse Assist IV Therapy: (0) No Gait: (0) Normal/Bedrest/Immobile Mental Status: (0) Oriented to Own Ability Fall Score: 0 Fall Risk Score Definition: No Risk: No action required Datetime: 06/23/2017 14:27 Time of Arrival: 06/23/2017 14:14 EGA: 38.5 Arrived By: Ambulatory Arrived From: Dr. Heck Chief Complaint: FROM CLINIC ELEV.BLOOD PRESSURE Movement: Present Contractions: Denies/Absent Rupture of Membranes: Denies Vaginal Discharge: Denies Recent Sexual Intercouse: Denies Abdominal Trauma: Not Applicable Patient Complaints: None Initial Plan: EFM Datetime: 06/16/2017 16:10 Stage of : OB Triage Labor Evaluation Frequency: 3-4 Monitor Mode: External Duration (sec)2399: 60 Quality: Moderate Resting Tone Reeves: Relaxed Heart Rate FHR Baseline Rate: 125 Monitor Mode: External US Variability: Moderate 6-25 bpm Accelerations: 15X15 Decelerations: None Category: Category I Pain Assessment Pain Scale: 5 Pain Presence: Intermittent Pain Type: Cramping; Contraction Pain Location: Abdomen; Back Pain Goal: 3 Pain Relief Measures: Comfort Measures Datetime: 06/16/2017 13:05 EGA: 37.5 Datetime: 06/02/2017 11:46 EGA: 35.5 Datetime: 06/02/2017 11:31 Fall Score: 0 Fall Risk Score Definition: No Risk: No action required
--- NOTE | 2017-06-23 17:42 | CONS ---
Date/Time of Note Date/Time of Note DATE: 06/23/17 TIME: 17: Consultation Date/Type/Reason Admit Date/Time June 23, 2017 OB triage consult Reason for Consultation This patient is 31 years old 2 para 1 living 1 who delivered by section her first child. Was referred to the triage clinic due to elevated blood pressure On examination her first blood pressure of 140/93 subsequently her other blood pressure over 128/80 3.25/84 and then also 132/85 and 140/88 On examination her general vital signs were normal her ear nose throat appear to be normal no edema of the lower extremity at this time however she says when she walks stands up she does have some edema knee-jerk reflexes normal Laboratory Tests Test 06/23/17 14:45 White Blood Count 7.010^3/ul Red Blood Count 4.2410^6/ul Hemoglobin 12.8g/dl Hematocrit 37.4% Mean Corpuscular Volume 88.2fl Mean Corpuscular Hemoglobin 30.2pg Mean Corpuscular Hemoglobin Concent 34.2g/dl Red Cell Distribution Width 15.9% Platelet Count 61454^3/UL Mean Platelet Volume 11.2fl Neutrophils % 57.3% Lymphocytes % 32.3% Monocytes % 8.3% Eosinophils % 0.6% Basophils % 0.4% Nucleated Red Blood Cells % 0.3/100WBC Neutrophils # 4.010^3/ul Lymphocytes # 2.310^3/ul Monocytes # 0.610^3/ul Eosinophils # 0.010^3/ul Basophils # 0.010^3/ul Nucleated Red Blood Cells # 0.010^3/ul Urine Color YELLOW Urine Clarity CLEAR Urine pH 7.0 Urine Specific [place] 1.011 Urine Ketones NEGATIVEmg/dL Urine Nitrite NEGATIVEmg/dL Urine Bilirubin NEGATIVEmg/dL Urine Urobilinogen NEGATIVEmg/dL Urine Leukocyte Esterase TRACELeu/ul Urine Microscopic RBC 0/HPF Urine Microscopic WBC 2/HPF Urine Squamous Epithelial Cells FEW/HPF Urine Bacteria FEW/HPF Urine Hemoglobin NEGATIVEmg/dL Urine Glucose NEGATIVEmg/dL Urine Total Protein 1+mg/dl Sodium Level 136mmol/L Potassium Level 4.5mmol/L Chloride Level 100mmol/L Carbon Dioxide Level 22mmol/L Anion Gap 19 Blood Urea Nitrogen 8mg/dl Creatinine 0.65mg/dl Glucose Level 84mg/dl Uric Acid 5.7mg/dl Calcium Level 9.0mg/dl Total Bilirubin 0.1mg/dl Direct Bilirubin 0.00mg/dl Indirect Bilirubin 0.1mg/dl Aspartate Amino Transf (AST/SGOT) 36IU/L Alanine Aminotransferase (ALT/SGPT) 42IU/L Alkaline Phosphatase 216IU/L Total Protein 6.8g/dl Albumin 3.5g/dl Globulin 3.30g/dl Albumin/Globulin Ratio 1.06 Constitutional: No chills, No diaphoresis, No disoriented, No febrile, No improved, No no complaints, No other, No poor po, No requiring IVF, No requiring O2 Eyes: No discharge, No no complaints, No other, No pain, No redness, No visual change ENT: other, No bleeding, No congestion, No discharge, No dysphagia, No no complaints, No pain, No sore throat Respiratory: other (Chest is clear to auscultation and precaution), No cough, No no complaints, No pain, No pleuritic pain, No shortness of breath, No sputum, No wheezing Cardiovascular: other (Normal sinus rhythm no murmur), No chest pain, No edema, No lightheadedness, No no complaints, No orthopenea , No palpitations, No paroxysmal nocturnal dyspnea Gastrointestinal: other (No abdominal pain), No blood, No constipation, No decreased appetite, No diarrhea, No flatus, No nausea, No no complaints, No pain, No passing stool, No vomiting Genitourinary: other (Pelvic exam was not performed due to the fact that she was having only occasional contractions), No bleeding, No discharge, No dysuria, No flank pain, No hematuria, No no complaints Musculoskeletal: No back pain, No bone/joint pain, No neck pain, No no complaints, No other, No restricted range of motion, No swelling Skin: No bruising, No erythema, No laceration, No no complaints, No other, No pruritis, No rash, No skin lesions Neurologic: No confusion, No dizziness, No focal-weakness, No headache, No no complaints, No other, No seizure, No syncope Endocrine: other (Knee-jerk reflex were normal) Lymphatic: No adenopathy, No lymphadema, No no complaints, No other, No tender nodes Psychological: No anxiety, No confusion, No depression, No nl mood/affect, No no complaints, No other, No suicidal Additional Comments On laboratory studies her electrolytes were normal PIH And liver function tests were totally normal her urine test was normal except for 1+ protein her CBC was normal with platelets of 194,000. We did an ultrasound study her biophysical profile was 07/05 the report of the ultrasound was single live intrauterine gestation with heart rate of 136 bpm in vertex presentation placenta was grade 2 not previa SHIRLEY of 11.1 Disposition. Considering her age and a slightly elevated diastolic blood pressure throughout the and basically normal PIH study she was discharged home with recommendation to have her done around 2-3 days from now End of dictation Social History Smoking Status: Never smoker Exam/Review of Systems Results Result Diagram: 06/23/17 1445 06/23/17 1445 Results 24 hrs Laboratory Tests Test 06/23/17 14:45 White Blood Count 7.0 Red Blood Count 4.24 Hemoglobin 12.8 Hematocrit 37.4 Mean Corpuscular Volume 88.2 Mean Corpuscular Hemoglobin 30.2 Mean Corpuscular Hemoglobin Concent 34.2 Red Cell Distribution Width 15.9 H Platelet Count 194 Mean Platelet Volume 11.2 H Neutrophils % 57.3 Lymphocytes % 32.3 Monocytes % 8.3 Eosinophils % 0.6 Basophils % 0.4 Nucleated Red Blood Cells % 0.3 H Neutrophils # 4.0 Lymphocytes # 2.3 Monocytes # 0.6 Eosinophils # 0.0 Basophils # 0.0 Nucleated Red Blood Cells # 0.0 Urine Color YELLOW Urine Clarity CLEAR Urine pH 7.0 Urine Specific [place] 1.011 Urine Ketones NEGATIVE Urine Nitrite NEGATIVE Urine Bilirubin NEGATIVE Urine Urobilinogen NEGATIVE Urine Leukocyte Esterase TRACE A Urine Microscopic RBC 0 Urine Microscopic WBC 2 Urine Squamous Epithelial Cells FEW Urine Bacteria FEW A Urine Hemoglobin NEGATIVE Urine Glucose NEGATIVE Urine Total Protein 1+ H Sodium Level 136 Potassium Level 4.5 Chloride Level 100 Carbon Dioxide Level 22 Anion Gap 19 H Blood Urea Nitrogen 8 Creatinine 0.65 Glucose Level 84 Uric Acid 5.7 Calcium Level 9.0 Total Bilirubin 0.1 L Direct Bilirubin 0.00 Indirect Bilirubin 0.1 Aspartate Amino Transf (AST/SGOT) 36 Alanine Aminotransferase (ALT/SGPT) 42 Alkaline Phosphatase 216 H Total Protein 6.8 Albumin 3.5 Globulin 3.30 H Albumin/Globulin Ratio 1.06 DAVID LIPSCOMB MD Jun 23, 2017 17:38
--- NOTE | 2017-06-23 17:44 | TRIAGE ---
OB Triage Datetime Report Generated by CPN: 06/23/2017 17:43 Datetime: 06/23/2017 14:27 Time Provider Notified: 06/23/2017 14:35 Provider Notified: ESHAGIAN
== END 2017-06-23 17:30 | disposition home or self-care (01) ==
LOC: OBT 14:15 → L-D 14:15 → OBT 17:30
PROVIDERS: ATTEND Obstetrics & Gynecology
DX: O26.893 Other specified pregnancy related conditions, third trimester (principal); Z3A.38 38 weeks gestation of pregnancy; R03.0 Elevated blood-pressure reading, without diagnosis of hypertension
CPT/HCPCS: 76818; 80053; 81001; 84560; 85025; Z7500; G0463

== ENCOUNTER 2017-06-24 11:37 | Inpatient (IN) | payer MEDICAID ==
[~2017-06-24] VITALS: Ht 160 cm; Wt 90.9 kg
[~2017-06-24 11:37] MED LIST changes: -ACET500C5 PO
[2017-06-24 12:58] VITALS: Ht 160 cm; Wt 90.9 kg
[2017-06-24 12:59] VITALS: BP 136/91; PULSE 73; RESP 20
[2017-06-24] MEDS: LACTATED RINGER'S 1,000 ML IV SCH ×2 (13:05→13:54)
[2017-06-24 13:25] LABS: BASOPHILS % 0.3 % (0.0-2.0); EOSINOPHILS % 0.3 % (0.0-7.0); HEMATOCRIT 36.8 % (37.0-47.0); HEMOGLOBIN 12.8 g/dl (12.0-16.0); LYMPHOCYTES % 33.4 % (15.0-51.0); MEAN CORPUSCULAR HEMOGLOBIN 30.5 pg (29.0-33.0); MEAN CORPUSCULAR HGB CONC 34.8 g/dl (32.0-37.0); MEAN CORPUSCULAR VOLUME 87.6 fl (82.0-101.0); MEAN PLATELET VOLUME 11.6 fl (7.4-10.4); MONOCYTE # 0.4 10^3/ul (0.3-0.9); MONOCYTES % 7.3 % (0.0-11.0); NEUTROPHIL # 3.5 10^3/ul (1.6-7.5); NEUTROPHILS % 57.9 % (39.0-77.0); PLATELET COUNT 182 10^3/UL (140-415); RED CELL DISTRIBUTION WIDTH 15.7 % (11.5-14.5); WHITE BLOOD COUNT 6.1 10^3/ul (4.8-10.8)
[2017-06-24] MEDS ORDERED: MISOPROSTOL 200 MCG TAB PR PRN ×2 (13:30→20:00)
[2017-06-24] MEDS ORDERED: CARBOPROST 250 MCG INJ IM PRN ×2 (13:30→20:00)
[2017-06-24] MEDS ORDERED: OXYTOCIN 30 UNITS/LR 500 ML IV PRN ×2 (13:30→20:00)
[2017-06-24] MEDS ORDERED: METHYLERGONOVINE 0.2 MG INJ IM PRN ×2 (13:30→20:00)
[2017-06-24] MEDS ORDERED: CEFAZOLIN 2 GM/50 ML (PMX) 50 ML IV PRN (13:30)
[2017-06-24 13:43] LABS: ALBUMIN 3.5 g/dl (3.3-4.9); ALBUMIN/GLOBULIN RATIO 1.09; BILIRUBIN,INDIRECT 0.1 mg/dl (0-1.1); BILIRUBIN,TOTAL 0.1 mg/dl (0.2-1.3); CALCIUM 9.3 mg/dl (8.4-10.2); CREATININE 0.66 mg/dl (0.44-1.00); POTASSIUM 4.6 mmol/L (3.5-5.1); TOTAL PROTEIN 6.7 g/dl (6.1-8.1)
[2017-06-24 13:45] LABS: INR 0.83; PROTIME 11.4 Sec (12.2-14.2); PT RATIO 0.9
[2017-06-24 13:46] LABS: PARTIAL THROMBOPLASTIN TIME 23.1 Sec (25.0-35.0)
[2017-06-24] MEDS ORDERED: LACTATED RINGER'S 1,000 ML IV PRN (14:00)
[2017-06-24 14:29] LABS: ADD UMIC NO; UR ASCORBIC ACID NEGATIVE (NEGATIVE); UR BILIRUBIN (Dip) NEGATIVE (NEGATIVE); UR BLOOD (Dip) NEGATIVE (NEGATIVE); UR CLARITY CLEAR (CLEAR); UR COLOR STRAW (YELLOW); UR GLUCOSE (Dip) NEGATIVE (NEGATIVE); UR KETONES (Dip) NEGATIVE (NEGATIVE); UR LEUKOCYTE ESTERASE (Dip) NEGATIVE Leu/ul (NEGATIVE); UR NITRITE (Dip) NEGATIVE (NEGATIVE); UR SPECIFIC GRAVITY (Dip) 1.005 (1.003-1.030); UR TOTAL PROTEIN (Dip) NEGATIVE (NEGATIVE); UR UROBILINOGEN (Dip) NEGATIVE (NEGATIVE)
--- NOTE | 2017-06-24 18:21 | HP ---
Date/Time of Note Date/Time of Note DATE: 06/24/17 TIME: 18:14 Assessment/Plan VTE Prophylaxis VTE Prophylaxis Intervention: SCD's Assessment/Plan Assessment/Plan 31 yo iup at 38 wks 6 days ga, GDMA1, previous CD X1, cat 2 tracing, desire elective repeat CD, decline p/ consent for elective repeat CD r/b/a explained HPI/ROS Admit Date/Time Admit Date/Time Jun 24, 2017 at 11:37 Hx of Present Illness 31 yo edc iup at 38 wks 6 days ga, previous CD X1, was sent from [facility] today for delivery secondary for Cat 2 tracing. patient has GDMA1 in current . she denies any contraction, vaginal bleeding or discharge. after explaining the R/B/A patient desires elective repeat CD. ROS Constitutional: improved, no complaints Eyes: no complaints ENT: no complaints Respiratory: no complaints Cardiovascular: no complaints Gastrointestinal: no complaints Genitourinary: no complaints Musculoskeletal: no complaints Skin: no complaints Neurologic: no complaints Endocrine: no complaints, other (GDMA1) Lymphatic: no complaints Psychological: nl mood/affect, no complaints Immunologic: no complaints PMH/Family/Social Past Medical History Medical History: diabetes (GDMA1) Past Surgical History X1 previous CD Family History Significant Family History: no pertinent family hx Social History Smoking Status: Never smoker Drug Use: none Exam/Review of Systems Vital Signs Vitals Vital Signs Date Time Temp Pulse Resp B/P Pulse Ox O2 Delivery O2 Flow Rate FiO2 06/24/17 12:59 98.0 73 20 136/91 98 Room Air Exam Constitutional: alert, oriented, well developed Psych: nl mood/affect, no complaints Head: atraumatic, normocephalic Eyes: EOMI, PERRL, nl conjunctiva, nl lids, nl sclera ENMT: nl external ears & nose, nl lips & teeth, nl nasal mucosa & septum Neck: non-tender, supple Respiratory: clear to auscultation, normal air movement Cardiovascular: nl pulses, regular rate and rhythm Gastrointestinal: nl liver, spleen, non-tender, other (gravid nt), soft Genitourinary - Male: No CVA tenderness, No discharge, No nl penis, No nl scrotum, No other Genitourinary - Female: other (ve deffered ) Musculoskeletal: nl extremities to inspection Extremities: normal pulses Neurological: COUNTER WEIGHER II-XII intact, nl mental status, nl speech, nl strength Skin: nl turgor, No rash or lesions Lymph: nl lymph nodes Labs Result Diagram: 06/24/17 1300 06/24/17 1300 Medications Medications Current Medications Cefazolin Sodium/ Dextrose 50 ml @ 100 mls/hr ONCE PRN IV pre op; Start at 13:30 Oxytocin/Lactated Ringer's 500 ml @ 0 mls/hr ONCE PRN IV For Hemorrhage Management; Start 06/24/17 at 13:30 Methylergonovine Maleate (Methergine) 0.2 mg ONCE PRN IM VAGINAL BLEEDING; Start 06/24/17 at 13:30 Carboprost Tromethamine (Hemabate) 250 mcg ONCE PRN IM VAGINAL BLEEDING; Start 06/24/17 at 13:30 Misoprostol 1000 mcg 1,000 mcg ONCE PRN VT VAGINAL BLEEDING; Start 06/24/17 at 13:30 Lactated Ringer's 1,000 ml @ 125 mls/hr Q8H IV Last administered on 06/24/17 13:05; Admin Dose 125 MLS/HR; Start 06/24/17 at 14:00 Lactated Ringer's (Lr) 1,000 ml @ 1,000 mls/hr Q1H PRN IV PRE OP Last administered on 06/24/17 18:03; Admin Dose 1,000 MLS/HR; Start 06/24/17 at 14: 00 DES GOODSON MD Jun 24, 2017 18:21
[2017-06-24] MEDS ORDERED: OXYTOCIN 30 UNITS/LR 500 ML IV ONE (18:37)
[2017-06-24] MEDS ORDERED: METOCLOPRAMIDE 10 MG INJ ONE (18:37)
[2017-06-24] MEDS ORDERED: EPHEDrine SULFATE 50 MG/5 ML SYG ONE (18:37)
[2017-06-24] MEDS ORDERED: OXYTOCIN 10 UNIT INJ ONE (18:37)
[2017-06-24] MEDS ORDERED: ONDANSETRON 4 MG INJ ONE (18:37)
[2017-06-24] MEDS ORDERED: morphine SULFATE/PF (10 MG/10 ML) INJ ONE (18:38)
[2017-06-24] MEDS ORDERED: LACTATED RINGER'S 1,000 ML IV SCH (19:37)
--- NOTE | 2017-06-24 19:37 | OPR ---
Operative Report Planned Procedure Free Text/Dictation PRIMARY DIAGNOSES: 1. A 31-year-old 2, para 1, intrauterine at 38weeks 6 days gestational age, previous CD X1, cat 2 tracing, desires elective repeat CD POSTOPERATIVE DIAGNOSES: 1. Same OPERATION PERFORMED: Repeat low transverse delivery via Pfannenstiel incision. SURGEON: Des Goodson MD BLACKENER: Dr. Dulce Casillas ANESTHESIA: Spinal. COMPLICATIONS: None. ESTIMATED BLOOD LOSS: 500 mL. FINDINGS: A viable female, 9 and 9 respectively at 1 and 5 minutes, weight 7 pounds 4 ounces. Normal uterus, tubes and ovaries. DESCRIPTION OF PROCEDURE: After explaining the risks, benefits and alternatives , the patient and consent signed in chart, the patient was taken to the operating room where spinal anesthesia was found to be adequate. She was then prepared and draped in normal sterile fashion in dorsal supine position with a leftward tilt. A Pfannenstiel skin incision was then made with a scalpel and carried to the underlying layer of the fascia. The fascia was incised in the midline and the incision was extended laterally with Carreon scissors. The superior aspect of the fascial incision was grasped with curved clamps, elevated and the underlying rectus muscles dissected off bluntly. Attention was then turned to the inferior aspect of the incision which in similar fashion was grasped, tented up with curved clamps and the rectus muscles dissected off bluntly. The rectus muscle was in midline, peritoneum identified, tented up and entered sharply with Metzenbaum scissors. The peritoneal incision was extended superiorly inferiorly with good visualization of bladder. The bladder blade was then inserted and the vesicouterine peritoneum identified, grasped with pickups and entered sharply with Metzenbaum scissors. The incision was extended laterally and a bladder flap created digitally. The bladder blade was then reinserted and the lower segment incised in transverse fashion with a scalpel. The uterine incision was extended laterally. The bladder blade was removed and the 's head delivered atraumatically. The nose and mouth were suctioned and cord clamped and cut/delayed. The was handed off to awaiting net trainer. The placenta was removed. The uterus was exteriorized and cleared of all clots and debris. The uterine incision was repaired with 1-0 chromic in a running locked fashion. A second layer of same suture was used for imbrication and obtained excellent hemostasis. The uterus was returned to the abdomen. The gutters were cleared of all clots. The peritoneum and rectus abdominis muscles were reapproximated with 3-0 Vicryl in interrupted fashion. The fascia was reapproximated with 0 Vicryl in a running fashion. The skin was closed with lizeth. The patient tolerated procedure well. Sponge, lap and needle counts correct x2. The patient was taken to recovery room in stable condition. Procedure date Procedure date Jun 24, 2017 Anesthesia Type: spinal Procedure Description Under satisfactory [] anesthesia, the patient was prepped and draped and placed in a supine position, tilted to the left. Pfannenstiel incision was made, carried through the subcutaneous tissue. Bleeders brought under control with electrocautery. Fascia incised to the length of the incision. Rectus muscles from the fascia, divided midline. Peritoneum exposed, entered through a transverse incision. Exploration of abdomen revealed gravid uterus. Bladder flap was developed. Transverse incision was made in the lower segment of the uterus. Amniotic sac ruptured. [] amniotic fluid noted. [] Nasal oropharyngeal suction was performed. The baby was handed to the team for immediate attention. The placenta was delivered manually intact. Uterine cavity was cleaned with wet sponge and drainage established. Uterus closed in 2 layers using [] in continuous fashion. Peritoneal cavity irrigated with warm saline. Sponge, needle and instrument count reported to be correct. Abdominal peritoneum closed with [] continuously. Rectus muscle approximated with []. Fascia closed with [], and skin closed with lizeth. Estimated blood loss []mL. Urine bag contained []mL of urine Post-Procedure Findings: Live Baby [], Apgars [] and [], weight [], position [], [] presentation []cord. Physician Certification I, the undersigned physician, hereby certify that I have discussed the procedure described in this consent form with this patient (or the patient's legal welding equipment sales representative), including: * The risk and benefits of the procedure; * Any adverse reactions that may reasonably be expected to occur; * Any alternative efficacious methods of treatment which may be medically viable ; * The potential problems that may occur during recuperation; * Potential for blood transfusion and associated risks/benefits; and * Any research or economic interest I may have regarding this treatment. I further certify that the patient/legally responsible person was encouraged to ask question and that all questions were answered. DES GOODSON MD Jun 24, 2017 19:37
[2017-06-24] MEDS ORDERED: morphine 2 MG INJ IV PRN ×2 (20:00)
[2017-06-24] MEDS ORDERED: ONDANSETRON 4 MG INJ IV PRN (20:00)
[2017-06-24] MEDS ORDERED: LANOLIN 7 GM TUBE TOP PRN (20:00)
[2017-06-24] MEDS ORDERED: morphine SULFATE/PF (10 MG/10 ML) INJ SPINAL ONE (20:00)
[2017-06-24] MEDS ORDERED: NALOXONE (0.4 MG/ML) INJ IV PRN (20:00)
[2017-06-24] MEDS ORDERED: DIPHENHYDRAMINE 50 MG INJ IV PRN (20:00)
[2017-06-24] MEDS ORDERED: OXYCODONE/ACETAMINOPHEN (5/325) TAB PO PRN (20:00)
[2017-06-24] MEDS ORDERED: EPHEDrine SULFATE 50 MG/5 ML SYG IV PRN (20:00)
[2017-06-24] MEDS: SENNA/DOCUSATE NA (8.6MG/50MG) TAB PO SCH (21:00)
[2017-06-24] MEDS: KETOROLAC 30 MG INJ IV PRN (21:02)
[2017-06-24 21:30] VITALS: BP 138/67; PULSE 59; RESP 19
[2017-06-24 21:53] VITALS: BP 133/66; PULSE 61; RESP 19
[2017-06-24 22:10] VITALS: BP 114/65; PULSE 62; RESP 19
[2017-06-24 22:31] VITALS: BP 116/70; PULSE 68; RESP 18
[2017-06-24 22:45] VITALS: BP 125/77; PULSE 68; RESP 19
[2017-06-25] MEDS ORDERED: IBUPROFEN 600 MG TAB PO SCH
[2017-06-25] MEDS: LACTATED RINGER'S 1,000 ML IV SCH ×3 (01:08→16:30)
[2017-06-25 04:00] VITALS: BP 127/75; PULSE 75; RESP 18
[2017-06-25] MEDS: KETOROLAC 30 MG INJ IV PRN ×2 (06:22→14:14)
[2017-06-25 07:07] LABS: BASOPHILS % 0.2 % (0.0-2.0); EOSINOPHILS % 0.1 % (0.0-7.0); HEMATOCRIT 32.9 % (37.0-47.0); HEMOGLOBIN 11.1 g/dl (12.0-16.0); LYMPHOCYTES # 1.7 10^3/ul (0.8-2.9); LYMPHOCYTES % 18.9 % (15.0-51.0); MEAN CORPUSCULAR HGB CONC 33.7 g/dl (32.0-37.0); MEAN CORPUSCULAR VOLUME 88.9 fl (82.0-101.0); MEAN PLATELET VOLUME 11.1 fl (7.4-10.4); MONOCYTE # 0.5 10^3/ul (0.3-0.9); MONOCYTES % 5.4 % (0.0-11.0); NEUTROPHIL # 6.8 10^3/ul (1.6-7.5); NEUTROPHILS % 74.7 % (39.0-77.0); PLATELET COUNT 165 10^3/UL (140-415); RED CELL DISTRIBUTION WIDTH 15.9 % (11.5-14.5); WHITE BLOOD COUNT 9.1 10^3/ul (4.8-10.8)
[2017-06-25 07:30] VITALS: BP 114/68; PULSE 74; RESP 20
[2017-06-25] MEDS: SENNA/DOCUSATE NA (8.6MG/50MG) TAB PO SCH ×2 (09:42→22:01)
--- NOTE | 2017-06-25 11:18 | QN ---
Documentation Comment patient seen and evaluated no complaints vs stable abod soft nt dressing clean extremity no edema no calf tenderness a/ sp cd pod 1 stable afebrile p/ iron supplement DES GOODSON MD Jun 25, 2017 11:18
[2017-06-25 11:34] VITALS: BP 126/78; PULSE 66; RESP 20
[2017-06-25 16:04] VITALS: BP 129/79; PULSE 70; RESP 20
[2017-06-25 20:00] VITALS: BP 124/59; PULSE 70; RESP 20
[2017-06-25] MEDS: FERROUS SULFATE (EC) 325 MG TAB PO SCH (22:01)
[2017-06-25] MEDS: IBUPROFEN 600 MG TAB PO SCH (23:24)
[2017-06-25] MEDS: OXYCODONE/ACETAMINOPHEN (5/325) TAB PO PRN (23:56)
[2017-06-26] MEDS: LACTATED RINGER'S 1,000 ML IV SCH (00:11)
[2017-06-26 04:00] VITALS: BP 132/82; PULSE 74; RESP 19
[2017-06-26] MEDS: IBUPROFEN 600 MG TAB PO SCH ×4 (06:06→23:22)
[2017-06-26 08:30] VITALS: BP_SYST 135; PULSE 77; RESP 18
[2017-06-26] MEDS: SENNA/DOCUSATE NA (8.6MG/50MG) TAB PO SCH ×2 (08:44→20:32)
[2017-06-26] MEDS: OXYCODONE/ACETAMINOPHEN (5/325) TAB PO PRN ×3 (08:45→20:33)
[2017-06-26] MEDS: FERROUS SULFATE (EC) 325 MG TAB PO SCH ×2 (08:46→20:32)
[2017-06-26 12:00] VITALS: BP 125/80; PULSE 65; RESP 20
--- NOTE | 2017-06-26 15:40 | PN ---
Date/Time of Note Date/Time of Note DATE: 06/26/17 TIME: 15:37 OB Subjective Subjective Subjective c/o abdominal pain due to gas passing flatus OB Objective Objective Objective vss afebrile abdomen distended tympanic wound dry calf neg for tenderness OB Assessment/Plan Other Assessment: stable post R C/S#2 Other plan: as ordered OLEGARIO BACH MD Jun 26, 2017 15:40
[2017-06-26 16:00] VITALS: BP 130/82; PULSE 76; RESP 20
[2017-06-26] MEDS ORDERED: BISACODYL 10 MG SUPP PR PRN (16:00)
[2017-06-26 20:00] VITALS: BP 140/83; PULSE 71; RESP 20
[2017-06-27 04:00] VITALS: BP 126/77; PULSE 71; RESP 20
[2017-06-27] MEDS: IBUPROFEN 600 MG TAB PO SCH ×2 (05:35→11:10)
[2017-06-27 07:50] VITALS: BP 127/87; PULSE 86; RESP 18
[2017-06-27] MEDS: SENNA/DOCUSATE NA (8.6MG/50MG) TAB PO SCH (08:50)
[2017-06-27] MEDS: FERROUS SULFATE (EC) 325 MG TAB PO SCH (08:50)
--- NOTE | 2017-06-27 10:34 | PD.PPDC ---
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
--- NOTE | 2017-06-27 13:48 | DS ---
DATE OF ADMISSION: 06/24/2017 DATE OF DISCHARGE: 06/27/2017 FINAL DIAGNOSES: 1. A 31-year-old 2 para 1 with intrauterine at 38 weeks gestational age. 2. Previous delivery x1. 3. Category 2 tracing, desires elective repeat delivery. PROCEDURE: Repeat low transverse delivery. DISCHARGE CONDITION: Satisfactory. Nothing per vagina, no heavy lifting x6 weeks. DIET: Regular. DISCHARGE MEDICATIONS: Motrin, percocet, iron, Colace. HOSPITAL COURSE: Miss Gabriela Pabon is a 31-year-old 2 para 2 status post repeat low transverse delivery on 06/24/2017. She had a viable female with Apgars 9 and 9 at 1 and 5 minutes, weight 7 pounds 4 ounces. She had an uneventful postoperative 1, 2 and 3. Her incision is clean, dry and intact. She is ambulating, voiding, positive flatulence and positive bowel movements. She will follow up in the office in 2-3 days to remove her lizeth. Dictated By: Mac Conteh MD /elise/thalia /Document#: [id number]
== END 2017-06-27 12:27 | disposition home or self-care (01) | DRG 765 ==
LOC: L-D 11:37 → PP1 22:44
PROVIDERS: ADMIT Obstetrics & Gynecology; ATTEND Obstetrics & Gynecology
PROC: 10D00Z1 Extraction of Products of Conception, Low, Open Approach (ICD-10-PCS; principal; 2017-06-24 19:00)
DX: O34.211 Maternal care for low transverse scar from previous cesarean delivery (principal); O10.92 Unspecified pre-existing hypertension complicating childbirth; O99.214 Obesity complicating childbirth; E66.01 Morbid (severe) obesity due to excess calories; Z68.35 Body mass index [BMI] 35.0-35.9, adult; O24.419 Gestational diabetes mellitus in pregnancy, unspecified control; Z3A.38 38 weeks gestation of pregnancy; Z37.0 Single live birth
CPT/HCPCS: 80053; 81003; 85025; 85384; 85610; 85730; 86592; 86850; 86900; 86901; 94760; 99464; J0690; J1885; J2274; J2405; J2590; J2765; J7120